=== PATIENT | male | born 1955 | race Caucasian/White ===

== ENCOUNTER 2023-07-24 17:05 | Day surgery (SDC) | payer MEDICARE, BC, SELFPAY ==
[2023-07-24 13:45] VITALS: BMI 30.5
[2023-07-24 13:50] VITALS: BP 166/98
[2023-07-24] MEDS: NORMOSOL-R 1000 IV (14:11)
[2023-07-24 18:01] VITALS: BP 154/90
[2023-07-24 18:15] VITALS: BP 158/93
[2023-07-24 18:30] VITALS: BP 141/98
[2023-07-24 18:45] VITALS: BP 146/74
[2023-07-24] MEDS: ROXICODONE 5 MG PO (18:54)
[2023-07-24 19:00] VITALS: BP 151/78
== END 2023-07-24 19:20 | disposition home or self-care (01) ==
LOC: SDS 17:05
PROVIDERS: ATTENDING PHYSICIAN Orthopaedic Surgery Hand Surgery; FAMILY PHYSICIAN Family Medicine
DX: S62.336A Displaced fracture of neck of fifth metacarpal bone, right hand, initial encounter for closed fracture (principal); X58.XXXA Exposure to other specified factors, initial encounter
CPT/HCPCS: 26608